=== PATIENT | male | born 1960 | race Caucasian/White ===

== ENCOUNTER 2017-12-01 09:49 | Emergency (ER) | payer MEDICAID ==
[2017-12-01] MEDS ORDERED: Sodium Chloride 0.9% 10 ML Syringe FLUSH PRN (10:30)
--- NOTE | 2017-12-01 12:00 | EDM.PDOC ---
ED HPI GENERAL MEDICAL PROBLEM - General Chief Complaint: Genitourinary Problem Stated Complaint: BLOOD IN URINE Time Seen by Provider: 12/01/17 10:14 Source of Information: Reports: Patient History Limitations: Reports: No Limitations - History of Present Illness INITIAL COMMENTS - FREE TEXT/NARRATIVE: The patient presents with hematuria. He woke up this morning feeling fine and he went to urinate and he had gross blood with a couple clots at the end. He had no pain with urination or frequency. He has never had this happen before. He has no fever, chills, cough, chest pain, shortness of breath, abdominal pain , nausea or vomiting. He is on blood thinners for a mechanical valve. He has no flank pain and no history of kidney stones. Onset: Sudden Duration: Minutes: Improves with: Reports: None Worsens with: Reports: None Associated Symptoms: Reports: No Other Symptoms - Related Data Allergies Allergy/AdvReac Type Severity Reaction Status Date / Time No Known Allergies Allergy Verified 12/01/17 10:02 Home Meds: Home Meds Metoprolol Succinate [Toprol XL 50mg] 50 mg PO DAILY 12/01/17 [History] Valsartan 160 mg PO DAILY 12/01/17 [History] Warfarin [Coumadin] 10 mg PO DAILY 12/01/17 [History] Past Medical History HEENT History: Reports: Impaired Vision Cardiovascular History: Reports: Aneurysm, Bypass, Hypertension Other Cardiovascular History: 2017 had open heart surgery due to AAA. Genitourinary History: Reports: Prostate Disorder - Infectious Disease History Infectious Disease History: Reports: Hepatitis C - Past Surgical History Cardiovascular Surgical History: Reports: AAA Repair Dermatological Surgical History: Reports: Skin Biopsy Social & Family History - Tobacco Use Smoking Status *Q: Former Smoker Years of Tobacco use: 10 Packs/Tins Daily: 1 Used Tobacco, but Quit: Yes Month/Year Tobacco Last Used: 1 Second Hand Smoke Exposure: No - Caffeine Use Caffeine Use: Reports: None - Recreational Drug Use Recreational Drug Use: Yes Drug Use in Last 12 Months: No Recreational Drug Type: Reports: Methamphetamine Recreational Drug Use Frequency: Monthly ED ROS GENERAL - Review of Systems Review Of Systems: See Below Constitutional: Reports: No Symptoms HEENT: Reports: No Symptoms Respiratory: Reports: No Symptoms Cardiovascular: Reports: No Symptoms Endocrine: Reports: No Symptoms GI/Abdominal: Reports: No Symptoms : Reports: Hematuria Musculoskeletal: Reports: No Symptoms Skin: Reports: No Symptoms Neurological: Reports: No Symptoms ED EXAM, RENAL/ - Physical Exam Exam: See Below Exam Limited By: No Limitations General Appearance: Alert, No Apparent Distress Ears: Normal External Exam Nose: Normal Inspection Head: Atraumatic, Normocephalic Neck: Normal Inspection Respiratory/Chest: No Respiratory Distress, Lungs Clear, Normal Breath Sounds Cardiovascular: Regular Rate, Rhythm, No Edema, No Murmur Back Exam: Normal Inspection Extremities: Normal Inspection Course - Vital Signs Last Recorded V/S: Last Vital Signs Temp 97.5 F 12/01/17 09:58 Pulse 55 L 12/01/17 09:58 Resp 18 12/01/17 09:58 BP 147/86 H 12/01/17 09:58 Pulse Ox 96 12/01/17 09:58 - Orders/Labs/Meds Orders: Active Orders 24 hr Category Date Time Status Peripheral IV Care [RC] . DIRECTED Care 12/01/17 10:30 Active COMPREHENSIVE METABOLIC PN,CMP [CHEM] Stat Lab 12/01/17 10:30 Received UA W/MICROSCOPIC [URIN] Stat Lab 12/01/17 10:20 Ordered Sodium Chloride 0.9% [Saline Flush] Med 12/01/17 10:30 Active 10 ml FLUSH ASDIRECTED PRN Peripheral IV Insertion Adult [OM.PC] Stat Oth 12/01/17 10:30 Ordered Medication Orders Sodium Chloride (Saline Flush) 10 ml FLUSH ASDIRECTED PRN PRN Reason: Keep Vein Open Last Admin: 12/01/17 10:38 Dose: 10 ml Labs: Laboratory Tests 12/01/17 12/01/17 12/01/17 Range/Units 10:20 10:30 10:30 WBC 5.37 (4.23-9.07) K/mm3 RBC 5.23 (4.63-6.08) M/mm3 Hgb 13.6 L (13.7-17.5) gm/L Hct 41.0 (40.1-51.0) % MCV 78.4 L (79.0-92.2) fl MCH 26.0 (25.7-32.2) pg MCHC 33.2 (32.2-35.5) g/dl RDW Std Deviation 49.5 H (35.1-43.9) fL Plt Count 228 (163-337) K/mm3 MPV 10.1 (9.4-12.3) fl Neut % (Auto) 52.7 (34.0-67.9) % Lymph % (Auto) 33.1 (21.8-53.1) % [place] % (Auto) 8.0 (5.3-12.2) % Eos % (Auto) 5.4 (0.8-7.0) Baso % (Auto) 0.6 (0.1-1.2) % Neut # (Auto) 2.83 (1.78-5.38) K/mm3 Lymph # (Auto) 1.78 (1.32-3.57) K/mm3 [place] # (Auto) 0.43 (0.30-0.82) K/mm3 Eos # (Auto) 0.29 (0.04-0.54) K/mm3 Baso # (Auto) 0.03 (0.01-0.08) K/mm3 PT 35.0 H (9.5-12.1) SECONDS INR 3.29 Urine Color Yellow (Yellow) Urine Appearance Slt cloudy H (Clear) Urine pH 6.5 (5.0-8.0) Ur Specific [place] 1.025 (1.005-1.030) Urine Protein 1+ H (Negative) Urine Glucose (UA) Negative (Negative) Urine Ketones Negative (Negative) Urine Occult Blood 3+ H (Negative) Urine Nitrite Negative (Negative) Urine Bilirubin Negative (Negative) Urine Urobilinogen 0.2 (0.2-1.0) Ur Leukocyte Esterase Negative (Negative) Urine RBC >100 H (0-5) /hpf Urine WBC 0-5 (0-5) /hpf Ur Epithelial Cells 0-5 (0-5) /hpf Urine Bacteria Few (FEW) /hpf Urine Mucus Few (FEW) /hpf Meds: Medications Generic Name Dose Route Start Last Admin Trade Name Freq PRN Reason Stop Dose Admin Sodium Chloride 10 ml 12/01/17 10:30 12/01/17 10:38 Saline Flush FLUSH 10 ml ASDIRECTED PRN Administration Keep Vein Open - Re-Assessments/Exams Free Text/Narrative Re-Assessment/Exam: 12/01/17 11:58 I ordered an IV saline lock, labs, and a UA. His UA shows blood but no sign of an infection. His CBC looks good. His INR is 3.29. His CMP looks good. I will have him follow up with the urologist. Departure - Departure Time of Disposition: 12:00 Disposition: Home, Self-Care 01 Condition: Good Clinical Impression: Hematuria Qualifiers: Hematuria type: gross Qualified Code(s): R31.0 - Gross hematuria - Discharge Information Referrals: Eli Recinos PA [Primary Care Provider] - Jamey Alberto MD [Ordering Only Provider] - 1 Week Additional Instructions: Take your medication as prescribed. Call Dr Alberto's office next week and get a follow up appointment. Please return if you are worse. - My Orders Last 24 Hours: My Active Orders 12/01/17 10:20 UA W/MICROSCOPIC [URIN] Stat 12/01/17 10:30 Peripheral IV Care [RC] . DIRECTED COMPREHENSIVE METABOLIC PN,CMP [CHEM] Stat Sodium Chloride 0.9% [Saline Flush] 10 ml FLUSH ASDIRECTED PRN Peripheral IV Insertion Adult [OM.PC] Stat - Assessment/Plan Last 24 Hours: My Active Orders 12/01/17 10:20 UA W/MICROSCOPIC [URIN] Stat 12/01/17 10:30 Peripheral IV Care [RC] . DIRECTED COMPREHENSIVE METABOLIC PN,CMP [CHEM] Stat Sodium Chloride 0.9% [Saline Flush] 10 ml FLUSH ASDIRECTED PRN Peripheral IV Insertion Adult [OM.PC] Stat
== END 2017-12-01 12:22 | disposition home or self-care (01) ==
LOC: JD.ED 09:49
DX: R31.0 Gross hematuria (principal); I10 Essential (primary) hypertension; Z87.891 Personal history of nicotine dependence; Z79.01 Long term (current) use of anticoagulants; Z79.899 Other long term (current) drug therapy
CPT/HCPCS: 36415; 80053; 81001; 85025; 85610; 99283; J7050

== ENCOUNTER 2017-12-11 07:40 | Emergency (ER) | payer MEDICAID ==
--- NOTE | 2017-12-11 08:14 | EDM.PDOC ---
ED HPI GENERAL MEDICAL PROBLEM - General Chief Complaint: Genitourinary Problem Stated Complaint: BLOOD IN URINE Time Seen by Provider: 12/11/17 08:07 Source of Information: Reports: Patient History Limitations: Reports: No Limitations - History of Present Illness INITIAL COMMENTS - FREE TEXT/NARRATIVE: 57-year-old male presents to the ED with recurrent gross hematuria. It is painless. He will grunt over 200 hours this morning during the storm and when he voided he had 4-5 clots passed per urethra. He is on Coumadin chronically. Last INR was done 3 days ago and was 2.65. Prior to that on November 18, 2029 was 3.29. He does have diffuse low back pain. Is not yet been able to see urology for cystoscopy. Has an appointment for January 31. Does have some dull discomfort in the penis groin area. No infection was identified in the urine done 4 days ago. INR was 2.65 that time. Onset: Unknown/Unsure (Off and on for at least the last 10-12 days.) Onset Date: 11/30/17 Duration: Day(s):, Waxing/Waning Location: Reports: Other (Intermittent gross hematuria painless) - Related Data Allergies Allergy/AdvReac Type Severity Reaction Status Date / Time No Known Allergies Allergy Verified 12/11/17 07:48 Home Meds: Home Meds Metoprolol Succinate [Toprol XL 50mg] 50 mg PO DAILY 12/01/17 [History] Valsartan 160 mg PO DAILY 12/01/17 [History] Warfarin [Coumadin] 10 mg PO DAILY 12/01/17 [History] Ferrous Sulfate [Iron] 325 mg PO DAILY 12/11/17 [History] Warfarin Sodium [Coumadin] 7.5 mg PO DAILY #30 tablet 12/11/17 [Rx] Past Medical History HEENT History: Reports: Impaired Vision Cardiovascular History: Reports: Aneurysm, Heart Valve Replacement (Had aortic valve replacement in May 2017. This is the reason he is on Coumadin.), Hypertension Other Cardiovascular History: 2017 had open heart surgery due to AAA. Genitourinary History: Reports: Prostate Disorder Hematologic History: Reports: Other (See Below) Other Hematologic History: currently on iron supplement. - Infectious Disease History Infectious Disease History: Reports: Hepatitis C - Past Surgical History Cardiovascular Surgical History: Reports: AAA Repair Dermatological Surgical History: Reports: Skin Biopsy Social & Family History - Tobacco Use Smoking Status *Q: Never Smoker Second Hand Smoke Exposure: No - Caffeine Use Caffeine Use: Reports: None - Recreational Drug Use Recreational Drug Use: No - Living Situation & Occupation Living situation: Reports: Single Occupation: Unemployed ED ROS GENERAL - Review of Systems Review Of Systems: See Below Constitutional: Denies: Fever, Chills, Malaise, Weakness, Fatigue, Decreased Appetite, Weight Loss HEENT: Reports: No Symptoms Respiratory: Reports: No Symptoms Cardiovascular: Reports: No Symptoms Endocrine: Reports: No Symptoms GI/Abdominal: Reports: No Symptoms : Reports: Hematuria (Gross hematuria with clots intermittently for at least 10 days.) Musculoskeletal: Reports: Back Pain Skin: Reports: No Symptoms (Diffuse low back pain discomfort) Neurological: Reports: No Symptoms Psychiatric: Reports: No Symptoms ED EXAM, RENAL/ - Physical Exam Exam: See Below Exam Limited By: No Limitations General Appearance: Alert, WD/WN, Anxious (Mildly anxious.) Eye Exam: Bilateral Eye: Normal Inspection Head: Atraumatic, Normocephalic Neck: Normal Inspection, Supple, Non-Tender, Full Range of Motion. No: Lymphadenopathy (L), Lymphadenopathy (R) Respiratory/Chest: No Respiratory Distress, Lungs Clear, Normal Breath Sounds, Other (Well-healed midline sternotomy incision.) Cardiovascular: Normal Peripheral Pulses, Regular Rate, Rhythm, No Edema, No Gallop, No Murmur, No Rub, Other (Can barely hear any palpable click from artificial valve.) GI/Abdominal: Normal Bowel Sounds, Soft, Non-Tender, No Organomegaly, No Abnormal Bruit, No Mass, Pelvis Stable (Male) Exam: No Hernia, Normal Inspection, Other (PSA done recently is normal as well.) Back Exam: Normal Inspection, Full Range of Motion. No: CVA Tenderness (L), CVA Tenderness (R) Extremities: Normal Inspection, Normal Range of Motion, Non-Tender, No Pedal Edema Neurological: Alert, Oriented, CN II-XII Intact, Normal Cognition Psychiatric: Normal Affect, Normal Mood Skin Exam: Warm, Dry, Intact ( ), Normal Color, No Rash Course - Vital Signs Last Recorded V/S: Last Vital Signs Temp 36.4 C 12/11/17 07:45 Pulse 60 12/11/17 07:45 Resp 18 12/11/17 07:45 BP 154/86 H 12/11/17 07:45 Pulse Ox 100 12/11/17 07:45 - Orders/Labs/Meds Orders: Active Orders 24 hr Category Date Time Status URINALYSIS W/MICROSCOPIC [UA W/MICROSCOPIC] [URIN] Stat Lab 12/11/17 08:50 Ordered Sodium Chloride 0.9% [Normal Saline] 1,000 ml Med 12/11/17 08:15 Active IV ASDIRECTED Sodium Chloride 0.9% [Saline Flush] Med 12/11/17 08:28 Active 10 ml FLUSH ONETIME PRN Medication Orders Sodium Chloride (Normal Saline) 1,000 mls @ 150 mls/hr IV ASDIRECTED GABBY Last Admin: 12/11/17 08:57 Dose: 150 mls/hr Sodium Chloride (Saline Flush) 10 ml FLUSH ONETIME PRN PRN Reason: IV FLUSH Last Admin: 12/11/17 08:40 Dose: 10 ml Admin: 12/11/17 08:25 Dose: 10 ml Labs: Laboratory Tests 12/11/17 12/11/17 12/11/17 Range/Units 08:25 08:25 08:25 WBC 5.59 (4.23-9.07) K/mm3 RBC 4.88 (4.63-6.08) M/mm3 Hgb 12.9 L (13.7-17.5) gm/L Hct 38.8 L (40.1-51.0) % MCV 79.5 (79.0-92.2) fl MCH 26.4 (25.7-32.2) pg MCHC 33.2 (32.2-35.5) g/dl RDW Std Deviation 49.4 H (35.1-43.9) fL Plt Count 223 (163-337) K/mm3 MPV 10.0 (9.4-12.3) fl Neutrophils % (Manual) 58 (40-60) % Band Neutrophils % 0 (0-10) % Lymphocytes % (Manual) 36 (20-40) % Atypical Lymphs % 0 % Monocytes % (Manual) 3 (2-10) % Eosinophils % (Manual) 3 (0.8-7.0) % Basophils % (Manual) 0 L (0.2-1.2) Platelet Estimate Adequate RBC Morph Comment Normal PT 48.2 H (9.5-12.1) SECONDS INR 4.56 Sodium 138 (136-145) mEq/L Potassium 4.2 (3.5-5.1) mEq/L Chloride 105 (98-107) mEq/L Carbon Dioxide 26 (21-32) mEq/L Anion Gap 11.2 (5-15) BUN 15 (7-18) mg/dL Creatinine 1.1 (0.7-1.3) mg/dL Est Cr Clr Drug Dosing 73.20 mL/min Estimated GFR (MDRD) > 60 (>60) mL/min BUN/Creatinine Ratio 13.6 L (14-18) Glucose 100 (74-106) mg/dL Calcium 8.8 (8.5-10.1) mg/dL Total Bilirubin 0.3 (0.2-1.0) mg/dL AST 19 (15-37) U/L ALT 13 L (16-63) U/L Alkaline Phosphatase 69 (46-116) U/L C-Reactive Protein 0.7 (<1.0) mg/dL Total Protein 7.4 (6.4-8.2) g/dl Albumin 3.6 (3.4-5.0) g/dl Globulin 3.8 gm/dL Albumin/Globulin Ratio 1.0 (1-2) Urine Color (Yellow) Urine Appearance (Clear) Urine pH (5.0-8.0) Ur Specific [place] (1.005-1.030) Urine Protein (Negative) Urine Glucose (UA) (Negative) Urine Ketones (Negative) Urine Occult Blood (Negative) Urine Nitrite (Negative) Urine Bilirubin (Negative) Urine Urobilinogen (0.2-1.0) Ur Leukocyte Esterase (Negative) Urine RBC (0-5) /hpf Urine WBC (0-5) /hpf Ur Epithelial Cells (0-5) /hpf Urine Bacteria (FEW) /hpf Urine Mucus (FEW) /hpf 12/11/17 Range/Units 08:50 WBC (4.23-9.07) K/mm3 RBC (4.63-6.08) M/mm3 Hgb (13.7-17.5) gm/L Hct (40.1-51.0) % MCV (79.0-92.2) fl MCH (25.7-32.2) pg MCHC (32.2-35.5) g/dl RDW Std Deviation (35.1-43.9) fL Plt Count (163-337) K/mm3 MPV (9.4-12.3) fl Neutrophils % (Manual) (40-60) % Band Neutrophils % (0-10) % Lymphocytes % (Manual) (20-40) % Atypical Lymphs % % Monocytes % (Manual) (2-10) % Eosinophils % (Manual) (0.8-7.0) % Basophils % (Manual) (0.2-1.2) Platelet Estimate RBC Morph Comment PT (9.5-12.1) SECONDS INR Sodium (136-145) mEq/L Potassium (3.5-5.1) mEq/L Chloride (98-107) mEq/L Carbon Dioxide (21-32) mEq/L Anion Gap (5-15) BUN (7-18) mg/dL Creatinine (0.7-1.3) mg/dL Est Cr Clr Drug Dosing mL/min Estimated GFR (MDRD) (>60) mL/min BUN/Creatinine Ratio (14-18) Glucose (74-106) mg/dL Calcium (8.5-10.1) mg/dL Total Bilirubin (0.2-1.0) mg/dL AST (15-37) U/L ALT (16-63) U/L Alkaline Phosphatase (46-116) U/L C-Reactive Protein (<1.0) mg/dL Total Protein (6.4-8.2) g/dl Albumin (3.4-5.0) g/dl Globulin gm/dL Albumin/Globulin Ratio (1-2) Urine Color [place] H (Yellow) Urine Appearance Slt cloudy H (Clear) Urine pH 6.5 (5.0-8.0) Ur Specific [place] 1.020 (1.005-1.030) Urine Protein 2+ H (Negative) Urine Glucose (UA) Negative (Negative) Urine Ketones Negative (Negative) Urine Occult Blood 3+ H (Negative) Urine Nitrite Negative (Negative) Urine Bilirubin Negative (Negative) Urine Urobilinogen 0.2 (0.2-1.0) Ur Leukocyte Esterase Negative (Negative) Urine RBC Too numerous to cnt H (0-5) /hpf Urine WBC 0-5 (0-5) /hpf Ur Epithelial Cells Not seen (0-5) /hpf Urine Bacteria Few (FEW) /hpf Urine Mucus Few (FEW) /hpf Meds: Medications Generic Name Dose Route Start Last Admin Trade Name Fredhruv PRN Reason Stop Dose Admin Sodium Chloride 1,000 mls @ 150 mls/hr 12/11/17 08:15 12/11/17 08:57 Normal Saline IV 150 mls/hr ASDIRECTED GABBY Administration Sodium Chloride 10 ml 12/11/17 08:28 12/11/17 08:40 Saline Flush FLUSH 10 ml ONETIME PRN Administration IV FLUSH Discontinued Medications Generic Name Dose Route Start Last Admin Trade Name Freq PRN Reason Stop Dose Admin Iopamidol 150 ml 12/11/17 08:28 12/11/17 08:40 Isovue-300 (61%) IVPUSH 12/11/17 08:29 120 ml ONETIME ONE Administration - Radiology Interpretation Free Text/Narrative:: 57-year-old male presents to the ED with recurrence of gross hematuria which has been intermittent for the last 10-12 days. Patient isn't chronically anticoagulated with Coumadin because of aortic valve replacement in May 2017. INR December 01 was elevated at 3.29. His dosage was reduced at that time. However since that time is continued to have intermittent gross hematuria which is for the most part painless. He appreciates some vague lower suprapubic abdominal pressure discomfort over bladder scan shows no significant amount of urine retained within the bladder. Last INR was done 4 days ago was 2.65. His creatinine is 1.1 with a GFR greater than 60 on December 01. No history of renal stones or bladder stones. Plan IV normal saline 150 mils per hour. Urinalysis will be repeated. Lab work will be repeated with a PT/INR as well. CT of the abdomen and pelvis be performed with IV contrast to make sure that he does not have any obvious problems with his kidneys or ureters. Most likely has intermittent hemorrhage from the bladder. Require cystoscopy. - Re-Assessments/Exams Free Text/Narrative Re-Assessment/Exam: 12/11/17 08:53 bladder slight scan revealed less than 25 mils of urine in the bladder. 12/11/17 09:12 Labs are back. Total white count is 5.59 differential is pending. Hemoglobin is 12.9 with hematocrit of 38.8. MCV is a little low at 79.5. Platelet count is normal 223,000. PT is 48.2 with an INR 4.56. Sodium is 138 with potassium of 4.2. Chloride is 105 with a bicarbonate 26. And a gap is 11.2. BUN is 15 with a creatinine of 1.1. GFR remains greater than 60. Glucose is 100. Calcium normal at 8.8. Liver function normal C-reactive protein is 0.7. Total protein is 7.43 and albumin fraction of 3.6. Urinalysis shows 2+ protein and 3+ occult blood. Micro-is pending. Departure - Departure Time of Disposition: 09:21 Disposition: Home, Self-Care 01 Condition: Fair Clinical Impression: Gross hematuria, Supratherapeutic INR - Discharge Information Prescriptions: Warfarin Sodium [Coumadin] 7.5 mg PO DAILY #30 tablet Instructions: Hematuria, Adult Referrals: Eli Recinos PA [Primary Care Provider] - Forms: ED Department Discharge Additional Instructions: Evaluation the emergency room and once again this morning in regards to passage of blood per urine with clots. This is been occurring off and on for the last 10 -12 days. We call this gross hematuria. It is painless. It is most likely from inside the urinary bladder. CT scan done today of the abdomen and pelvis reveals no abnormalities of the kidneys or the drainage tubes call the ureters. Rice portions of the urinary bladder also appeared to be normal. The only finding of concern is an elevated INR at 4.56. This is much too high and may well be contributing to spontaneous bleeding in the urinary tract. Therefore suggest no Coumadin for the next 2 days. Then start 7.5 mg daily. Repeat PT/INR in 5-6 days time is indicated. If bleeding worsens then I would suggest traveling to [place] to one of the ERs there were urological services are available - My Orders Last 24 Hours: My Active Orders 12/11/17 08:15 Sodium Chloride 0.9% [Normal Saline] 1,000 ml IV ASDIRECTED 12/11/17 08:28 Sodium Chloride 0.9% [Saline Flush] 10 ml FLUSH ONETIME PRN 12/11/17 08:50 URINALYSIS W/MICROSCOPIC [UA W/MICROSCOPIC] [URIN] Stat - Assessment/Plan Last 24 Hours: My Active Orders 12/11/17 08:15 Sodium Chloride 0.9% [Normal Saline] 1,000 ml IV ASDIRECTED 12/11/17 08:28 Sodium Chloride 0.9% [Saline Flush] 10 ml FLUSH ONETIME PRN 12/11/17 08:50 URINALYSIS W/MICROSCOPIC [UA W/MICROSCOPIC] [URIN] Stat
[2017-12-11] MEDS ORDERED: Sodium Chloride 0.9% 1,000 ML IV SCH (08:15)
[2017-12-11] MEDS: Sodium Chloride 0.9% 10 ML Syringe FLUSH PRN ×2 (08:25→08:40)
[2017-12-11] MEDS ORDERED: Iopamidol 612 MG/ML 150 ML Bottle IVPUSH ONE (08:28)
--- NOTE | 2017-12-11 09:13 | CT ---
CT abdomen and pelvis Technique: Multiple axial sections were obtained from above the dome of the diaphragm inferiorly through the pubic symphysis. Intravenous contrast was given. No oral contrast was utilized. Delayed images were also obtained through the kidneys and bladder. Findings: Small low density finding is seen within the inferior right kidney. This measures about 9 mm and is felt compatible with a cyst. No additional abnormality is seen within the right or left kidneys. No filling defects are seen within the collecting systems on delayed images. Right and left ureters show no dilatation or obstruction. Contrast is noted within the bladder. Visualized lung bases shows nothing acute. Liver shows no focal parenchymal abnormality. Spleen appears within normal limits in size. Incidental calcified granulomas are seen within the spleen. Adrenal glands appear within normal limits. Gallbladder contains no gallstones. Aorta shows atherosclerotic change without aneurysmal dilatation. No retroperitoneal adenopathy is seen. Diverticuli are seen within the sigmoid colon and descending colon as well as within the transverse colon. No inflammatory change of diverticulitis is seen. Appendix not definitely visualized. Bone window settings were reviewed which shows degenerative change within the spine with vacuum disc phenomena also noted within the L4-5 and L5-S1 discs. Small fat-containing umbilical hernia is noted. Impression: 1. Small 9 mm cyst within the right kidney. No additional abnormality is seen within the kidneys or ureters or bladder. 2. Other incidental findings as noted above. Diagnostic code #2
== END 2017-12-11 09:30 | disposition home or self-care (01) ==
LOC: JD.ED 07:40
DX: R31.0 Gross hematuria (principal); R79.1 Abnormal coagulation profile; Z79.01 Long term (current) use of anticoagulants; Z79.899 Other long term (current) drug therapy
CPT/HCPCS: 36415; 74177; 80053; 81001; 85007; 85027; 85610; 86140; 96360; 99284; J7040; J7050; Q9967

== ENCOUNTER 2019-10-14 07:04 | Emergency (ER) | payer MEDICARE, MEDICAID ==
--- NOTE | 2019-10-14 07:56 | EDM.PDOC ---
ED HPI GENERAL MEDICAL PROBLEM - General Chief Complaint: Genitourinary Problem Stated Complaint: BLOOD IN URINE Time Seen by Provider: 10/14/19 07:14 Source of Information: Reports: Patient History Limitations: Reports: No Limitations - History of Present Illness INITIAL COMMENTS - FREE TEXT/NARRATIVE: The patient presents with hematuria. This has been going on for 3 days. He is on coumadin for an aortic valve repair. He also had a AAA repair in 2017. He had this happen before in 2018. He saw a urologist and he sees him yearly. He has no flank pain with it. He did have some discomfort when he urinated. He has no history of kidney stones. He has no fever, chills, cough, congestion, runny nose, chest pain, shortness of breath, abdominal pain, nausea or vomiting. Onset: Gradual Duration: Day(s): (3) Quality: Reports: Sharp Severity: Mild Improves with: Reports: None Worsens with: Reports: None Associated Symptoms: Denies: Chest Pain, Cough, Fever/Chills, Headaches, Nausea/ Vomiting, Shortness of Breath Groin Pain Score (Numeric/FACES): 8 - Related Data Allergies Allergy/AdvReac Type Severity Reaction Status Date / Time No Known Allergies Allergy Verified 10/14/19 07:14 Home Meds: Home Meds Metoprolol Succinate [Toprol XL 50mg] 100 mg PO DAILY 12/01/17 [History] Valsartan 100 mg PO DAILY 12/01/17 [History] Warfarin [Coumadin] 10 mg PO SUTU 12/01/17 [History] Ferrous Sulfate [Iron] 325 mg PO DAILY 12/11/17 [History] Warfarin Sodium [Coumadin] 5 mg PO MOWEFR 10/14/19 [History] Warfarin Sodium [Coumadin] 7.5 mg PO THSA 10/14/19 [History] amLODIPine [Norvasc] 5 mg PO DAILY 10/14/19 [History] Past Medical History HEENT History: Reports: Impaired Vision Other HEENT History: wears eyeglasses. Cardiovascular History: Reports: Aneurysm, Heart Valve Replacement, Hypertension Other Cardiovascular History: 2017 had open heart surgery due to AAA. Genitourinary History: Reports: Prostate Disorder Hematologic History: Reports: Anemia, Other (See Below) Other Hematologic History: currently on iron supplement. - Infectious Disease History Infectious Disease History: Reports: Hepatitis C - Past Surgical History Cardiovascular Surgical History: Reports: AAA Repair, Valve Replacement, Other ( See Below) Other Cardiovascular Surgeries/Procedures: aortic valve replaced. GI Surgical History: Reports: Appendectomy Dermatological Surgical History: Reports: Skin Biopsy Social & Family History - Tobacco Use Smoking Status *Q: Never Smoker - Caffeine Use Caffeine Use: Reports: None - Recreational Drug Use Recreational Drug Use: No - Living Situation & Occupation Living situation: Reports: Single Occupation: Unemployed ED ROS GENERAL - Review of Systems Review Of Systems: See Below Constitutional: Reports: No Symptoms HEENT: Reports: No Symptoms Respiratory: Reports: No Symptoms Cardiovascular: Reports: No Symptoms Endocrine: Reports: No Symptoms GI/Abdominal: Reports: No Symptoms : Reports: Dysuria, Hematuria ED EXAM, RENAL/ - Physical Exam Exam: See Below Exam Limited By: No Limitations General Appearance: Alert, No Apparent Distress Ears: Normal External Exam Nose: Normal Inspection Head: Atraumatic, Normocephalic Neck: Normal Inspection Respiratory/Chest: No Respiratory Distress, Lungs Clear, Normal Breath Sounds Cardiovascular: Regular Rate, Rhythm, No Edema, No Murmur GI/Abdominal: Soft, Non-Tender, No Organomegaly, No Mass Course - Vital Signs Last Recorded V/S: Last Vital Signs Temp 97.0 F 10/14/19 07:10 Pulse 59 L 10/14/19 07:10 Resp 18 10/14/19 07:10 BP 144/83 H 10/14/19 07:10 Pulse Ox 98 10/14/19 07:10 - Orders/Labs/Meds Orders: Active Orders 24 hr Category Date Time Status Cardiac Monitoring [RC] . DIRECTED Care 10/14/19 07:27 Active Labs: Laboratory Tests 10/14/19 10/14/19 10/14/19 Range/Units 07:15 08:45 08:45 WBC 5.98 (4.23-9.07) K/mm3 RBC 4.89 (4.63-6.08) M/mm3 Hgb 14.4 (13.7-17.5) gm/dl Hct 41.4 (40.1-51.0) % MCV 84.7 (79.0-92.2) fl MCH 29.4 (25.7-32.2) pg MCHC 34.8 (32.2-35.5) g/dl RDW Std Deviation 40.2 (35.1-43.9) fL Plt Count 228 (163-337) K/mm3 MPV 9.5 (9.4-12.3) fl Neut % (Auto) 56.9 (34.0-67.9) % Lymph % (Auto) 27.8 (21.8-53.1) % [place] % (Auto) 8.7 (5.3-12.2) % Eos % (Auto) 5.9 (0.8-7.0) Baso % (Auto) 0.5 (0.1-1.2) % Neut # (Auto) 3.41 (1.78-5.38) K/mm3 Lymph # (Auto) 1.66 (1.32-3.57) K/mm3 [place] # (Auto) 0.52 (0.30-0.82) K/mm3 Eos # (Auto) 0.35 (0.04-0.54) K/mm3 Baso # (Auto) 0.03 (0.01-0.08) K/mm3 PT 34.5 H (9.7-12.0) SECONDS INR 3.39 APTT 49 H (22-31) SECONDS Sodium (136-145) mEq/L Potassium (3.5-5.1) mEq/L Chloride (98-107) mEq/L Carbon Dioxide (21-32) mEq/L Anion Gap (5-15) BUN (7-18) mg/dL Creatinine (0.7-1.3) mg/dL Est Cr Clr Drug Dosing mL/min Estimated GFR (MDRD) (>60) mL/min BUN/Creatinine Ratio (14-18) Glucose (74-106) mg/dL Calcium (8.5-10.1) mg/dL Total Bilirubin (0.2-1.0) mg/dL AST (15-37) U/L ALT (16-63) U/L Alkaline Phosphatase (46-116) U/L Total Protein (6.4-8.2) g/dl Albumin (3.4-5.0) g/dl Globulin gm/dL Albumin/Globulin Ratio (1-2) Urine Color Red H (Yellow) Urine Appearance Turbid H (Clear) Urine pH 5.5 (5.0-8.0) Ur Specific [place] > or = 1.030 (1.005-1.030) Urine Protein 3+ H (Negative) Urine Glucose (UA) Negative (Negative) Urine Ketones Negative (Negative) Urine Occult Blood 3+ H (Negative) Urine Nitrite Negative (Negative) Urine Bilirubin 1+ H (Negative) Urine Urobilinogen 0.2 (0.2-1.0) Ur Leukocyte Esterase Negative (Negative) Urine RBC Too numerous to cnt H (0-5) /hpf Urine WBC Not seen (0-5) /hpf Ur Epithelial Cells 0-5 (0-5) /hpf Urine Bacteria Many H (FEW) /hpf Urine Mucus Not seen (FEW) /hpf 10/14/19 Range/Units 08:45 WBC (4.23-9.07) K/mm3 RBC (4.63-6.08) M/mm3 Hgb (13.7-17.5) gm/dl Hct (40.1-51.0) % MCV (79.0-92.2) fl MCH (25.7-32.2) pg MCHC (32.2-35.5) g/dl RDW Std Deviation (35.1-43.9) fL Plt Count (163-337) K/mm3 MPV (9.4-12.3) fl Neut % (Auto) (34.0-67.9) % Lymph % (Auto) (21.8-53.1) % [place] % (Auto) (5.3-12.2) % Eos % (Auto) (0.8-7.0) Baso % (Auto) (0.1-1.2) % Neut # (Auto) (1.78-5.38) K/mm3 Lymph # (Auto) (1.32-3.57) K/mm3 [place] # (Auto) (0.30-0.82) K/mm3 Eos # (Auto) (0.04-0.54) K/mm3 Baso # (Auto) (0.01-0.08) K/mm3 PT (9.7-12.0) SECONDS INR APTT (22-31) SECONDS Sodium 139 (136-145) mEq/L Potassium 4.6 (3.5-5.1) mEq/L Chloride 105 (98-107) mEq/L Carbon Dioxide 25 (21-32) mEq/L Anion Gap 13.6 (5-15) BUN 19 H (7-18) mg/dL Creatinine 0.9 (0.7-1.3) mg/dL Est Cr Clr Drug Dosing 87.28 mL/min Estimated GFR (MDRD) > 60 (>60) mL/min BUN/Creatinine Ratio 21.1 H (14-18) Glucose 105 (74-106) mg/dL Calcium 9.0 (8.5-10.1) mg/dL Total Bilirubin 0.3 (0.2-1.0) mg/dL AST 18 (15-37) U/L ALT 18 (16-63) U/L Alkaline Phosphatase 55 (46-116) U/L Total Protein 7.2 (6.4-8.2) g/dl Albumin 3.4 (3.4-5.0) g/dl Globulin 3.8 gm/dL Albumin/Globulin Ratio 0.9 L (1-2) Urine Color (Yellow) Urine Appearance (Clear) Urine pH (5.0-8.0) Ur Specific [place] (1.005-1.030) Urine Protein (Negative) Urine Glucose (UA) (Negative) Urine Ketones (Negative) Urine Occult Blood (Negative) Urine Nitrite (Negative) Urine Bilirubin (Negative) Urine Urobilinogen (0.2-1.0) Ur Leukocyte Esterase (Negative) Urine RBC (0-5) /hpf Urine WBC (0-5) /hpf Ur Epithelial Cells (0-5) /hpf Urine Bacteria (FEW) /hpf Urine Mucus (FEW) /hpf - Re-Assessments/Exams Free Text/Narrative Re-Assessment/Exam: 10/14/19 07:57 I have ordered labs and a UA. 10/14/19 10:01 His Hgb is normal at 14.4 and platelets are normal. His INR is elevated at 3.39. His CMP looks good. His UA shows blood and some bacteria and no other sign of infection. I called Dr Alberto and he did not want me to put a cath in. He will have someone from his office call the patient for a follow up. We will hold the coumadin for 2 days and have the level rechecked. Departure - Departure Time of Disposition: 10:05 Disposition: Home, Self-Care 01 Condition: Good Clinical Impression: Hematuria Qualifiers: Hematuria type: gross Qualified Code(s): R31.0 - Gross hematuria - Discharge Information *PRESCRIPTION DRUG MONITORING PROGRAM REVIEWED*: Not Applicable *COPY OF PRESCRIPTION DRUG MONITORING REPORT IN PATIENT JC: Not Applicable Referrals: Emma Rojas MD [Primary Care Provider] - 1 Week Forms: ED Department Discharge Additional Instructions: Hold your coumadin today and tomorrow. Start again on and have your INR checked on or Sunday. Someone from Dr Alberto's office will be calling to make a follow up appointment. Please return if you are worse such as not able to urinate. Sepsis Event Note - Evaluation Sepsis Screening Result: No Definite Risk - Focused Exam Vital Signs: Vital Signs Temp Pulse Resp BP Pulse Ox 10/14/19 07:10 97.0 F 59 L 18 144/83 H 98 Date Exam was Performed: 10/14/19 Time Exam was Performed: 10:01 - My Orders Last 24 Hours: My Active Orders 10/14/19 07:27 Cardiac Monitoring [RC] . DIRECTED - Assessment/Plan Last 24 Hours: My Active Orders 10/14/19 07:27 Cardiac Monitoring [RC] . DIRECTED
== END 2019-10-14 10:15 | disposition home or self-care (01) ==
LOC: JD.ED 07:04
DX: R31.0 Gross hematuria (principal); I10 Essential (primary) hypertension; D64.9 Anemia, unspecified; Z90.49 Acquired absence of other specified parts of digestive tract; Z79.899 Other long term (current) drug therapy
CPT/HCPCS: 36415; 80053; 81001; 85025; 85610; 85730; 99283

== ENCOUNTER 2020-04-21 11:01 | Emergency (ER) | payer MEDICARE, MEDICAID ==
--- NOTE | 2020-04-21 12:51 | EDM.PDOC ---
ED HPI GENERAL MEDICAL PROBLEM - General Chief Complaint: General Stated Complaint: POSSIBLE BROKEN RIB Time Seen by Provider: 04/21/20 11:34 Source of Information: Reports: Patient, RN Notes Reviewed History Limitations: Reports: No Limitations - History of Present Illness INITIAL COMMENTS - FREE TEXT/NARRATIVE: Patient is a 5-year-old male presenting to the emergency department with complaints of pain to his anterior right lower chest wall. States Sunday morning he had a coughing fit and has been experiencing pain to the area since that time. He figured it was a muscle strain and that it would get better, however he states it is not improved. He has not used any [id number] medications for it. He denies any shortness of breath or chest pain. Right Chest Pain Score (Numeric/FACES): 7 - Related Data Allergies Allergy/AdvReac Type Severity Reaction Status Date / Time No Known Allergies Allergy Verified 04/21/20 11:31 Home Meds: Home Meds Metoprolol Succinate [Toprol XL 50mg] 100 mg PO DAILY 12/01/17 [History] Warfarin [Coumadin] 10 mg PO SUTU 12/01/17 [History] Ferrous Sulfate [Iron] 325 mg PO DAILY 12/11/17 [History] Warfarin Sodium [Coumadin] 5 mg PO MOWEFR 10/14/19 [History] Warfarin Sodium [Coumadin] 7.5 mg PO ASDIRECTED 10/14/19 [History] amLODIPine [Norvasc] 10 mg PO DAILY 10/14/19 [History] Losartan [Cozaar] 50 mg PO DAILY 04/21/20 [History] Mecobalamin [B12 Active] 1,000 mcg PO DAILY 04/21/20 [History] predniSONE [Prednisone] 20 mg PO ASDIRECTED #12 tablet 04/21/20 [Rx] Past Medical History HEENT History: Reports: Impaired Vision Other HEENT History: wears eyeglasses. Cardiovascular History: Reports: Aneurysm, Heart Valve Replacement, Hypertension Other Cardiovascular History: 2017 had open heart surgery due to AAA. Respiratory History: Reports: None Gastrointestinal History: Reports: None Genitourinary History: Reports: Prostate Disorder Musculoskeletal History: Reports: None Neurological History: Reports: None Psychiatric History: Reports: None Endocrine/Metabolic History: Reports: None Hematologic History: Reports: Anemia, Other (See Below) Other Hematologic History: currently on iron supplement. Immunologic History: Reports: None Oncologic (Cancer) History: Reports: None Dermatologic History: Reports: None - Infectious Disease History Infectious Disease History: Reports: None - Past Surgical History Head Surgeries/Procedures: Reports: None HEENT Surgical History: Reports: Oral Surgery Cardiovascular Surgical History: Reports: AAA Repair, Valve Replacement, Other (See Below) Other Cardiovascular Surgeries/Procedures: aortic valve replaced. GI Surgical History: Reports: Appendectomy Dermatological Surgical History: Reports: Skin Biopsy Social & Family History - Family History Family Medical History: No Pertinent Family History - Tobacco Use Tobacco Use Status *Q: Former Tobacco User Used Tobacco, but Quit: Yes Month/Year Tobacco Last Used: 06/1989 - Caffeine Use Caffeine Use: Reports: None - Recreational Drug Use Recreational Drug Use: No - Living Situation & Occupation Living situation: Reports: Single Occupation: Unemployed ED ROS GENERAL - Review of Systems Review Of Systems: See Below Constitutional: Reports: No Symptoms. Denies: Fever, Chills, Weakness HEENT: Reports: No Symptoms Respiratory: Reports: No Symptoms. Denies: Shortness of Breath, Cough Cardiovascular: Reports: No Symptoms Endocrine: Reports: No Symptoms GI/Abdominal: Reports: No Symptoms : Reports: No Symptoms Musculoskeletal: Reports: Other (Right anterior lower rib pain) Skin: Reports: No Symptoms Neurological: Reports: No Symptoms Psychiatric: Reports: No Symptoms Hematologic/Lymphatic: Reports: No Symptoms Immunologic: Reports: No Symptoms ED EXAM, GENERAL - Physical Exam Exam: See Below General Appearance: Alert, WD/WN, No Apparent Distress Respiratory/Chest: No Respiratory Distress, Lungs Clear, Normal Breath Sounds, No Accessory Muscle Use, Other (Tenderness to palpation to the right 11th and 12th rib midclavicular line. No obvious step-offs or ecchymosis present.) Cardiovascular: Normal Peripheral Pulses, Regular Rate, Rhythm, No Edema, No Gallop, No JVD, No Murmur, No Rub GI/Abdominal: Normal Bowel Sounds, Soft, Non-Tender, No Organomegaly, No Distention, No Abnormal Bruit, No Mass Neurological: Alert, Oriented, CN II-XII Intact, Normal Cognition, Normal Gait, Normal Reflexes, No Motor/Sensory Deficits Psychiatric: Normal Affect, Normal Mood Skin Exam: Warm, Dry, Intact, Normal Color, No Rash Course - Vital Signs Last Recorded V/S: Last Vital Signs Temp 97.2 F 04/21/20 11:36 Pulse 66 04/21/20 11:36 Resp 20 04/21/20 11:36 BP 120/89 04/21/20 11:36 Pulse Ox 97 04/21/20 11:36 - Orders/Labs/Meds Orders: Active Orders 24 hr Category Date Time Status Ribs 2V wo Chest Rt [CR] Stat Exams 04/21/20 12:09 Taken - Re-Assessments/Exams Free Text/Narrative Re-Assessment/Exam: 04/21/20 12:56 Rib x-ray showed no acute findings. He does have an old right eighth rib fracture. We will start the patient on prednisone for treatment of chest wall muscle strain. Discussed return precautions. Discharge instructions as documented. Departure - Departure Time of Disposition: 12:57 Disposition: Admitted As Inpatient 66 Condition: Good Clinical Impression: Rib pain on right side - Discharge Information *PRESCRIPTION DRUG MONITORING PROGRAM REVIEWED*: Yes *COPY OF PRESCRIPTION DRUG MONITORING REPORT IN PATIENT JC: No Prescriptions: predniSONE [Prednisone] 20 mg PO ASDIRECTED #12 tablet Instructions: Chest Wall Pain, [id number] Referrals: Emma Rojas MD [Primary Care Provider] - Forms: ED Department Discharge Additional Instructions: You were seen in the emergency department for pain to your right lower ribs after having an acute coughing episode on Sunday. Rib x-rays were completed and showed no acute fractures. You been started on prednisone. Take this medication as prescribed. Also recommend that you begin taking an omeprazole daily while taking this to prevent stomach upset. This can be purchased [id number] at any drugstore. You may stop taking the omeprazole at the conclusion of treatment. Recommend intermittent heat applied to the area of discomfort. You may use [id number] Tylenol as needed for the pain. If you experience any new or worsening symptoms, please not hesitate to return to the ER for reevaluation. Sepsis Event Note (ED) - Evaluation Sepsis Screening Result: No Definite Risk - Focused Exam Vital Signs: Vital Signs Temp Pulse Resp BP Pulse Ox 04/21/20 11:36 97.2 F 66 20 120/89 97 - My Orders Last 24 Hours: My Active Orders 04/21/20 12:09 Ribs 2V wo Chest Rt [CR] Stat - Assessment/Plan Last 24 Hours: My Active Orders 04/21/20 12:09 Ribs 2V wo Chest Rt [CR] Stat
--- NOTE | 2020-04-21 12:57 | CR ---
PROCEDURE INFORMATION: Exam: XR Right Ribs Exam date and time: 04/21/2020 12:23 PM Age: 59 years old Clinical indication: Chest wall pain; Right TECHNIQUE: Imaging protocol: XR Right ribs. Views: 2 views. COMPARISON: No relevant prior studies available. FINDINGS: Bones/joints: Old fracture of the lateral right 8th rib. No acute rib fracture identified. Sternotomy. Cardiac valve prosthesis. 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 Soft tissues: Normal. IMPRESSION: No acute findings. Old right 8th rib fracture Thank you for allowing us to participate in the care of your patient. Dictated and Authenticated by: Raquel West MD 04/21/2020 1:45 PM Central Time ([place] & [place]) TREY
== END 2020-04-21 13:20 | disposition critical access hospital (66) ==
LOC: JD.ED 11:01
DX: R07.81 Pleurodynia (principal); I10 Essential (primary) hypertension; Z79.01 Long term (current) use of anticoagulants; Z79.899 Other long term (current) drug therapy; Z87.891 Personal history of nicotine dependence
CPT/HCPCS: 71100-26-RT; 71100-RT; 99283; 99285-25

== ENCOUNTER 2020-09-02 17:24 | Emergency (ER) | payer MEDICARE, MEDICAID ==
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
--- NOTE | 2020-09-02 19:18 | CR ---
Left tibia and fibula: 2 views of the left tibia and fibula were obtained. Mild soft tissue swelling appears to be present. No acute fracture or other bony abnormality is appreciated. Impression: 1. Soft tissue swelling. 2. No acute osseous abnormality is appreciated. Diagnostic code #2
== END 2020-09-02 19:30 | disposition home or self-care (01) ==
LOC: JD.ED 17:24
DX: M79.662 Pain in left lower leg (principal); I10 Essential (primary) hypertension; Z79.899 Other long term (current) drug therapy; Z90.49 Acquired absence of other specified parts of digestive tract
CPT/HCPCS: 73590-26-LT; 73590-LT; 99283; 99283-25

== ENCOUNTER 2021-11-30 12:24 | Emergency (ER) | payer MEDICARE, MEDICAID | END 2021-11-30 13:43 | disposition home or self-care (01) | LOC: JD.ED 12:24 | DX: S61.210A Laceration without foreign body of right index finger without damage to nail, initial encounter (principal); I10 Essential (primary) hypertension; Z79.01 Long term (current) use of anticoagulants; Z79.899 Other long term (current) drug therapy; Z86.16 Personal history of COVID-19; W25.XXXA Contact with sharp glass, initial encounter; Y92.009 Unspecified place in unspecified non-institutional (private) residence as the place of occurrence of the external cause | CPT/HCPCS: 12002; 99282-25; 99283 ==

== ENCOUNTER 2023-07-06 09:49 | Emergency (ER) | payer MEDICARE ==
[2023-07-06] MEDS: Sodium Chloride 0.9% 10 ML Syringe FLUSH PRN ×2 (10:11→11:11)
[2023-07-06] MEDS ORDERED: Aspirin 81 MG Tab.Chew PO ONE (10:21)
[2023-07-06 10:51] LABS: TSH 2.241 uIU/mL (0.358-3.74)
[2023-07-06] MEDS ORDERED: Iopamidol 755 Mg/ML 100 ML Bottle IVPUSH ONE (10:54)
[2023-07-06] MEDS ORDERED: Sodium Chloride 0.9% 100 ML IV SCH (11:00)
== END 2023-07-06 13:05 | disposition home or self-care (01) ==
LOC: JD.ED 09:49
DX: R20.2 Paresthesia of skin (principal); I10 Essential (primary) hypertension; Z79.01 Long term (current) use of anticoagulants; Z79.899 Other long term (current) drug therapy; Z86.16 Personal history of COVID-19
CPT/HCPCS: 36415; 71045; 71275; 83735; 84443; 84484; 85379; 99284; A9270; J3490; Q9967; 99283

== ENCOUNTER 2024-11-24 13:28 | Emergency (ER) | payer MEDICARE ==
[2024-11-24] MEDS ORDERED: Naloxone 0.4 MG/ML SDV IVPUSH PRN (14:53)
[2024-11-24] MEDS: Ondansetron 4 MG/2 ML SDV IVPUSH ONE (15:24)
[2024-11-24] MEDS: Morphine 4 MG/ML Syringe IVPUSH ONE (15:26)
[2024-11-24] MEDS: Sodium Chloride 0.9% 1,000 ML IV ONE ×2 (15:29→17:45)
[2024-11-24 15:31] LABS: BASOPHILS PERCENT AUTO 0.2 % (0.0-1.0); EOSINOPHILS ABSOLUTE AUTO 0.1 K/mm3 (0.0-0.4); EOSINOPHILS PERCENT AUTO 0.5 % (0.0-6.0); HEMATOCRIT 42.3 % (42.0-52.0); HEMOGLOBIN 14.6 gm/dl (14.0-18.0); IMMATURE GRAN ABSOLUTE AUTO 0.04 K/mm3 (0.00-0.05); IMMATURE GRAN PERCENT AUTO 0.3 % (0.0-0.4); LYMPHOCYTES ABSOLUTE AUTO 1.4 K/mm3 (1.0-4.8); MEAN CORPUSCULAR HEMOGLOBIN 29.3 pg (28.0-32.0); MEAN CORPUSCULAR HGB CONC 34.5 g/dl (32.0-36.0); MEAN CORPUSCULAR VOLUME 84.9 fl (83.0-99.0); MEAN PLATELET VOLUME 9.6 fl (9.4-12.4); MONOCYTES ABSOLUTE AUTO 0.6 K/mm3 (0.0-0.8); MONOCYTES PERCENT AUTO 4.8 % (0.0-8.0); NEUTROPHILS ABSOLUTE AUTO 10.3 K/mm3 (1.8-7.7); NEUTROPHILS PERCENT AUTO 83.2 % (41.0-71.0); PLATELET COUNT,PLT 235 K/mm3 (150-400); RED BLOOD CELL COUNT 4.98 M/mm3 (4.52-5.90); WHITE BLOOD CELL COUNT,WBC 12.38 K/mm3 (3.9-11.3)
[2024-11-24 16:02] LABS: A/G RATIO 1.1 (1-2); ALBUMIN 4.1 g/dl (3.4-5.0); ANION GAP 12.4 (5-15); BILIRUBIN TOTAL 0.4 mg/dL (0.2-1.0); BUN/CREATININE RATIO 18.9 (14-18); CALCIUM 9.7 mg/dL (8.5-10.1); CREATININE 0.9 mg/dL (0.7-1.3); EST CRCL DRUG DOSING (CG) 81.83 mL/min; POTASSIUM,K 4.4 mEq/L (3.5-5.1); PROTEIN TOTAL,TP 7.9 g/dl (6.4-8.2)
[2024-11-24] MEDS: Sodium Chloride 0.9% 10 ML Syringe FLUSH PRN ×2 (16:12→17:45)
[2024-11-24] MEDS: Iopamidol 612 MG/ML 100 ML Bottle IVPUSH ONE (16:13)
[2024-11-24 17:19] LABS: INR 3.02; PROTHROMBIN TIME 29.8 SECONDS (9.7-12.0)
[2024-11-24] MEDS: HYDROmorphone 0.5 MG/0.5 ML Syringe IVPUSH ONE ×2 (17:44→20:21)
[2024-11-24] MEDS ORDERED: Piperacillin/Tazobactam 4.5 GM in Sodium Chloride 0.9% 100 ML IV SCH (18:15)
[2024-11-24 18:23] LABS: APPEARANCE,URINE CLEAR (Clear); BILIRUBIN,URINE NEGATIVE (Negative); COLOR,URINE YELLOW (Yellow); GLUCOSE,URINE NEGATIVE (Negative); KETONES,URINE NEGATIVE (Negative); LEUKOCYTE ESTERASE,URINE NEGATIVE (Negative); NITRITE,URINE NEGATIVE (Negative); OCCULT BLOOD,URINE 2+ (Negative); PH,URINE 6.5 (5.0-8.0); PROTEIN,URINE NEGATIVE (Negative); UROBILINOGEN,URINE 0.2 (0.2-1.0)
[2024-11-24] MEDS: Piperacillin/Tazobactam 4.5 GM in Sodium Chloride 0.9% 100 ML IV ONE (18:34)
[2024-11-24 18:41] LABS: BACTERIA,URINE RARE /hpf (FEW); EPITHELIAL CELLS,URINE 0-5 /hpf (0-5); MUCUS,URINE RARE /hpf (FEW); WBC,URINE 0-5 /hpf (0-5)
[2024-11-24] MEDS: Piperacillin/Tazobactam 4.5 GM in Sodium Chloride 0.9% 100 ML IV SCH (23:16)
[2024-11-25] MEDS: HYDROmorphone 0.5 MG/0.5 ML Syringe IVPUSH ONE ×2 (00:12→01:56)
== END 2024-11-25 01:55 ==
LOC: JD.ED 13:28
DX: K81.9 Cholecystitis, unspecified (principal); I10 Essential (primary) hypertension; Z86.16 Personal history of COVID-19; Z90.49 Acquired absence of other specified parts of digestive tract; Z95.2 Presence of prosthetic heart valve; Z79.01 Long term (current) use of anticoagulants; Z79.899 Other long term (current) drug therapy
CPT/HCPCS: 36415; 74177; 80053; 81001; 83690; 84484; 85025; 85610; 93005; 96361; 96365; 96366; 96375; 96376; 99285; J2270; J2405; J2543; J7030; Q9967; 93010; 99284; J1171